=== PATIENT | female | born 1965 | race Caucasian/White ===

== ENCOUNTER 2023-04-15 06:28 | Day surgery (SDC) | payer BC, SELFPAY ==
[2023-04-12 07:15] VITALS: BMI 21.6
[2023-04-15 06:33] VITALS: BP 133/80; PULSE 82; RESP 20; TEMP 36.7; O2SAT 98; BMI 21.5
[2023-04-15] MEDS: Lactated Ringers 1,000 ML 50 ML IVCONT (06:52)
--- NOTE | 2023-04-15 07:20 | MHC.SHP ---
Pre-Procedural Eval Section A Date of Service: 04/15/23 Section B Chief Complaint: screening Details of Present Illness: see H&P no changes Relevant Family History (Specify if Yes): No Relevant Social History: None Present Medications: see Short Stay Collaborative assessment Medical History: No relevant PMH History of Previous Operations: No relevant previous surgery Allergies: Allergies Allergy/AdvReac Type Severity Reaction Status Date / Time Seasonal Allergies Allergy Unknown Verified 04/12/23 07:14 Review of Systems Sugical H&P ROS: Negative: Constitution, Cardiovascular, Respiratory, Neurological, Psychiatric, Hem-Onc, Allergic/Immunologic, Gastrointestinal, Genitourinary, Musculoskeletal, Integumentary, Endocrine and Eyes/Ears/Nose/Throat Exam Surgical H&P Exam: Normal: HEENT, Normal: Heart, Normal: Lungs, Normal: Extremities, Normal: Abdomen, Normal: Skin and Normal: Neurological Plan Diagnosis/Plan: Unchanged I have reviewed the history and physical and performed a pertinent physical examination on my patient. No changes have occurred unless specified. Time Spent With Patient Time: Total time managing care of this patient today ____ minutes.
--- NOTE | 2023-04-15 07:30 | HO.ANESPROP2 ---
HPI - Anesthesia Eval Consult details Narrative: Surveillance Colonoscopy [facility] Past Medical History Medical History Environmental allergies Family History Family history of problems with anesthesia: No Surgical History Surgical History History of cholecystectomy H/O colonoscopy History of Problems with Anesthesia: No Social History Social History Patient Tobacco Use Status: Former Tobacco user Are you DNR?: No Advance Directives: No Advance Directives Information Provided: Yes Nutrition Risks: No Nutritional Risk Meds Allergies Allergy/AdvReac Type Severity Reaction Status Date / Time Seasonal Allergies Allergy Unknown Verified 04/12/23 07:14 Active Medications: Current Medications Lactated Ringer's (Lr) 1,000 mls @ 50 mls/hr IVCONT .Q20H KENDRA Last Admin: 04/15/23 06:52 Dose: 50 mls/hr Exam Height,Weight and Vital Signs: Height 5 ft 6 in Weight 60.328 kg Last Vital Signs Temp 98.1 F 04/15/23 06:33 Pulse 82 04/15/23 06:33 Resp 20 04/15/23 06:33 BP 133/80 04/15/23 06:33 Pulse Ox 98 04/15/23 06:33 O2 Del Method Room Air 04/15/23 06:33 Airway Mallampati Class: II TM Dist: >3cm Neck ROM: Full Loose/Missing/Broken Teeth: No Heart: [id number] Lungs: cta b/l Assessment and Plan Assessment Anesthesia Assessment: Anesthesia Plan Discussed and Chart Reviewed Final Anesthetic Review Family History of Problems with Anesthesia: No History of Problems with Anesthesia: No NPO: Yes ASA Class: I Final Preanesthetic Review: No Changes in Pt Med Stat, Meds/Allgs Chart Reviewed, Consent Obtained/Reviewed and Anes Risks/Benef Reviewed Patient Risk: Low Procedure Risk: Low Assessment/Block/Sedation in SS: Assess/Block/Sedation-SS Anesthetic Plan Anesthetic Plan: MAC: and Agree w/ Assess. and Plan Disposition: Standard PACU
[2023-04-15 08:00] VITALS: BP 86/45; PULSE 65; RESP 12; TEMP 36.6; O2SAT 98
[2023-04-15 08:07] VITALS: BP 90/42
[2023-04-15 08:15] VITALS: BP 109/63; PULSE 64; RESP 16; TEMP 36.8; O2SAT 98
--- NOTE | 2023-04-15 08:48 | OP_ITS ---
DATE OF SERVICE: 04/15/2023 SURGEON: Sincere Flowers MD INDICATIONS: Colon cancer screening and prior history of adenomatous colon polyps. PREOPERATIVE DIAGNOSIS: POSTOPERATIVE DIAGNOSIS: PROCEDURE PERFORMED: Colonoscopy to the terminal ileum with biopsy. ESTIMATED BLOOD LOSS: COMPLICATIONS: ANESTHESIA: Monitored anesthesia care. ASSISTANTS: SPECIMENS: DESCRIPTION OF PROCEDURE: History and physical was performed. The risks and benefits of the procedure were explained to the patient. Informed consent was obtained. The patient was placed in the left lateral decubitus position. A digital rectal exam was performed and was found to be normal. The Olympus pediatric video colonoscope was introduced into the rectum and advanced to the cecum. The cecum was identified by transillumination, palpation, and identification of ileocecal valve. Examination was performed. The scope was removed. She tolerated the procedure well and was returned to recovery in stable condition. FINDINGS: The terminal ileum was examined and appeared normal. There was a focal area of ileitis which was nonspecific. This was biopsied. There was no evidence of active Crohn disease. The visualized colonic mucosa was normal. The quality of prep was good. No polyps were identified. Retroflexed examination showed some hypertrophic anal papillae. IMPRESSION: 1. Ileitis. 2. Normal colonoscopy. RECOMMENDATION: Follow up the biopsy results. 10 year colon recall. MD YUNG Chan/HOME / [id number] MTDD
== END 2023-04-15 08:40 | disposition home or self-care (01) ==
PROVIDERS: PCP Internal Medicine; Visit Provider Internal Medicine Gastroenterology
PROC: 0DJD8ZZ Inspection of Lower Intestinal Tract, Via Natural or Artificial Opening Endoscopic (ICD-10-PCS; CPT 45378; principal; 2023-04-15 07:30)
DX: Z12.11 Encounter for screening for malignant neoplasm of colon (principal); Z86.010 Personal history of colon polyps; K52.9 Noninfective gastroenteritis and colitis, unspecified; K62.89 Other specified diseases of anus and rectum; J30.2 Other seasonal allergic rhinitis; Z90.49 Acquired absence of other specified parts of digestive tract
CPT/HCPCS: 45380; 88305; J2704